=== PATIENT | male | born 1990 | race Caucasian/White ===

== ENCOUNTER 2017-11-19 09:27 | Emergency (ER) | payer BC, SELFPAY ==
[2017-11-19 09:55] LABS: #Basophils 0.1 thou/uL (0.0-0.2); #Eosinphils 0.1 thou/uL (0.0-0.7); #Lymphocytes 2.3 thou/uL (1.20-3.40); #Monocytes 0.6 thou/uL (0.11-0.59); #Neutrophils 2.1 thou/uL (1.40-6.50); %Basophils 1.7 % (0.0-1.0); %Eosinophils 2.7 % (0.0-10.0); %Lymphocytes 44.4 % (21.0-51.0); %Monocytes 11.6 % (0.0-10.0); %Neutrophils 39.6 % (42.0-75.0); Hemoglobin 15.9 g/dL (14.0-18.0); Mean Corpuscular HGB CONC 35.2 g/dL (32.0-36.0); Mean Corpuscular Hemoglobin 29.9 pg (27.0-31.0); Mean Platelet Volume 7.7 fL (7.4-10.4); Platelet Count 197 thou/uL (130-400); RBC Distribution Width 11.4 % (11.5-14.5); White Blood Cell (WBC) Count 5.2 thou/uL (4.8-10.8)
[2017-11-19] MEDS ORDERED: Ketorolac Tromethamine 30 MG/ML VIAL ONE (09:55)
[2017-11-19 10:06] LABS: ALT (SGPT) 22 U/L (8-55); AST (SGOT) 44 U/L (5-34); Albumin 4.6 g/dL (3.5-5.0); Alkaline Phosphatase 70 U/L (40-150); Anion Gap 15 mmol/L (10-20); BUN (Urea Nitrogen) 15 mg/dL (8.9-20.6); Bilirubin, Total 1.9 mg/dL (0.2-1.2); CK (CPK) 1337 U/L (30-200); Calc. Creatinine Clearance 0 mL/min (70-130); Carbon Dioxide 21 mmol/L (22-29); Chloride 107 mmol/L (98-107); Estimated GFR-MDRD 64; Glucose 93 mg/dL (70-105); Potassium 3.9 mmol/L (3.5-5.1); Protein, Total 7.6 g/dL (6.0-8.3); Sodium 139 mmol/L (136-145)
--- NOTE | 2017-11-19 10:08 | RAD ---
PORTABLE CHEST: Date: 11/19/17 HISTORY: Chest pain. FINDINGS: Lung gonzáles are clear. Heart and mediastinum unremarkable. IMPRESSION: No acute abnormality. POS: [facility]
[2017-11-19 10:09] LABS: Troponin I Less than 0.010 ng/mL (< 0.028)
[2017-11-19 10:20] LABS: CKMB 8.5 ng/mL (0-6.6)
--- NOTE | 2017-11-22 12:49 | EKG ---
Test Reason : Blood Pressure : / mmHG Vent. Rate : 043 BPM Atrial Rate : 043 BPM P-R Int : 152 ms QRS Dur : 096 ms QT Int : 408 ms P-R-T Axes : 059 081 051 degrees QTc Int : 344 ms Marked sinus bradycardia with sinus arrhythmia Abnormal ECG Confirmed by MARY MEJIA ([id number]), editor trade journal JAIME QUEZADA ([id number]) on 11/22/2017 12:48:59 PM Referred By: ROBERTO Confirmed By:MARY MEJIA
== END 2017-11-19 11:12 | disposition home or self-care (01) ==
LOC: SCSER 09:27
DX: R07.89 Other chest pain (principal); F17.290 Nicotine dependence, other tobacco product, uncomplicated
CPT/HCPCS: 71045; 80053; 82553; 84484; 85025; 93005; 96361; 96374; J1885

== ENCOUNTER 2020-05-25 09:25 | Emergency (ER) | payer BC, SELFPAY ==
[2020-05-25 10:11] LABS: Bacteria/HPF None Seen HPF (None Seen); Bilirubin Negative (Negative); Blood, Urine 1+ (Negative); Clarity Clear (Clear); Glucose, Urine (Dipstick) Normal (Negative); Ketone, Urine Negative (Negative); Leukocyte Negative Leu/uL (Negative); Nitrite Negative (Negative); Protein, Urine (Dipstick) Negative (Neg-Trace); RBC/HPF 0-3 HPF (0-3); Specific Gravity, Urine 1.004 (1.002-1.036); Squamous Epithelial None Seen HPF (0-3); Urobilinogen Normal mg/dL (Less than 2); WBC/HPF 0-3 HPF (0-3)
[2020-05-25 11:45] LABS: #Basophils 0.1 thou/uL (0.0-0.2); #Eosinphils 0.2 thou/uL (0.0-0.7); #Monocytes 0.8 thou/uL (0.11-0.59); #Neutrophils 2.9 thou/uL (1.40-6.50); %Basophils 1.6 % (0.0-1.0); %Eosinophils 2.7 % (0.0-10.0); %Lymphocytes 42.9 % (21.0-51.0); %Monocytes 11.3 % (0.0-10.0); %Neutrophils 41.5 % (42.0-75.0); Hemoglobin 15.5 g/dL (14.0-18.0); Mean Corpuscular HGB CONC 32.8 g/dL (32.0-36.0); Mean Corpuscular Hemoglobin 29.7 pg (27.0-31.0); Mean Corpuscular Volume 90.4 fL (78.0-98.0); Mean Platelet Volume 7.6 fL (7.4-10.4); Platelet Count 195 thou/uL (130-400); RBC Distribution Width 11.8 % (11.5-14.5); Red Blood Cell (RBC) Count 5.23 mill/uL (4.70-6.10)
[2020-05-25 12:11] LABS: ALT (SGPT) 37 U/L (8-55); AST (SGOT) 33 U/L (5-34); Albumin 4.3 g/dL (3.5-5.0); Alkaline Phosphatase 64 U/L (40-110); Anion Gap 14 mmol/L (10-20); BUN (Urea Nitrogen) 12 mg/dL (8.9-20.6); Bilirubin, Total 1.1 mg/dL (0.2-1.2); CK (CPK) 207 U/L (30-200); Calc. Creatinine Clearance 0 mL/min (70-130); Calcium 9.3 mg/dL (7.8-10.44); Carbon Dioxide 25 mmol/L (22-29); Chloride 104 mmol/L (98-107); Globulin 3.2 g/dL (2.4-3.5); Glucose 91 mg/dL (70-105); Potassium 4.6 mmol/L (3.5-5.1); Protein, Total 7.5 g/dL (6.0-8.3); Sodium 138 mmol/L (136-145)
== END 2020-05-25 12:49 | disposition home or self-care (01) ==
LOC: ERS 09:25
DX: R31.9 Hematuria, unspecified (principal); F17.220 Nicotine dependence, chewing tobacco, uncomplicated
CPT/HCPCS: 36415; 80053; 81003; 81015; 82550; 85025; 99283

== ENCOUNTER 2022-09-18 09:37 | Outpatient (CLI) | payer BC, OTHER ==
[2022-09-18 10:49] LABS: #Basophils 0.1 10x3/uL (0.0-0.2); #Eosinphils 0.2 10x3/uL (0.0-0.5); #Monocytes 0.8 10x3/uL (0.0-1.1); #Neutrophils 3.1 10x3/uL (1.5-8.4); %Eosinophils 2.3 % (0.0-6.0); %Lymphocytes 45.5 % (18.0-47.0); %Monocytes 10.6 % (0.0-10.0); %Neutrophils 40.3 % (40.0-75.0); Hemoglobin 14.8 g/dL (13.5-17.5); Mean Corpuscular HGB CONC 33.5 g/dL (32.0-36.0); Mean Corpuscular Hemoglobin 28.4 pg (27.0-33.0); Mean Corpuscular Volume 84.7 fl (81.2-95.1); Mean Platelet Volume 10.4 fl (7.4-10.4); Platelet Count 214 10x3/uL (150-450); RBC Distribution Width 12.7 % (11.5-14.5); Red Blood Cell (RBC) Count 5.22 10x6/uL (4.32-5.72); White Blood Cell (WBC) Count 7.7 10x3/uL (3.5-10.5)
== END 2022-09-18 09:38 | disposition home or self-care (01) ==
LOC: LABBT 09:37
PROVIDERS: ATTEND Orthopaedic Surgery
DX: Z01.812 Encounter for preprocedural laboratory examination (principal); S83.211A Bucket-handle tear of medial meniscus, current injury, right knee, initial encounter
CPT/HCPCS: 85025

== ENCOUNTER 2022-09-21 08:40 | Day surgery (SDC) | payer OTHER ==
[2022-09-19 12:36] VITALS: BMI 25.7
[2022-09-21] MEDS ORDERED: fentaNYL 50 mcg/mL 1 mL Vial ONE (10:01)
[2022-09-21] MEDS ORDERED: Midazolam HCl 2 mg/2 ml Vial ONE (10:01)
[2022-09-21] MEDS ORDERED: Lidocaine 2% PF 5 ML VIAL ONE ×2 (10:01→12:48)
[2022-09-21] MEDS ORDERED: Bupivacaine PF 0.5% 30 ML VIAL ONE (10:01)
[2022-09-21] MEDS ORDERED: fentaNYL PF 100 MCG/2 ML SYRINGE ONE (12:29)
[2022-09-21] MEDS ORDERED: Sodium Chloride 0.9% 100 ML ONE (12:41)
[2022-09-21] MEDS ORDERED: CEFAZOLIN 2 GM VIAL ONE (12:41)
[2022-09-21] MEDS ORDERED: PROPOFOL 200 MG/20 ML VIAL ONE (12:48)
[2022-09-21] MEDS ORDERED: Lidocaine 1% PF 5 ML VIAL ONE (12:48)
[2022-09-21] MEDS ORDERED: Ondansetron PF 4 MG/2 ML Vial ONE (12:48)
[2022-09-21] MEDS ORDERED: Bupivacaine HCl 0.5%/Epinephrine 1:200,000/PF 30 ml Vial ONE (12:48)
[2022-09-21] MEDS ORDERED: Ketorolac Tromethamine 30 MG/ML VIAL ONE (12:48)
[2022-09-21] MEDS ORDERED: Dexamethasone 20 MG/5 ML VIAL ONE (12:48)
== END 2022-09-21 16:02 | disposition home or self-care (01) ==
LOC: SDC 08:40
PROVIDERS: ATTEND Orthopaedic Surgery
PROC: 0SBC4ZZ Excision of Right Knee Joint, Percutaneous Endoscopic Approach (ICD-10-PCS; principal; 2022-09-21)
DX: S83.211A Bucket-handle tear of medial meniscus, current injury, right knee, initial encounter (principal); M65.861 Other synovitis and tenosynovitis, right lower leg; E55.9 Vitamin D deficiency, unspecified; Z79.899 Other long term (current) drug therapy; Z88.5 Allergy status to narcotic agent; X58.XXXA Exposure to other specified factors, initial encounter; Y99.0 Civilian activity done for income or pay
CPT/HCPCS: J1100; J1885; J2001; J2250; J2405; J2704; J3010; J3490; S0020